=== PATIENT | female | born 1990 | race American Indian/Alaskan Native ===

== ENCOUNTER 2020-12-16 13:57 | Emergency (ER) | payer MEDICAID ==
[2020-12-16 15:15] VITALS: BP 112/84
--- NOTE | 2020-12-16 15:38 | Emergency Department Report ---
ED Lower Extremity HPI - General Chief Complaint: Extremity Injury, Lower Stated Complaint: RT ANKLE PAIN/FALL Time Seen by Provider: 12/16/20 15:32 Source: patient Mode of arrival: Ambulatory Limitations: No Limitations - History of Present Illness Initial Comments: patient is a 30-year-old female presents emergency room complaints of a right ankle injury that occurred earlier today. Patient states that she was running to catch the bus and accidentally had a inversion injury of her ankle. She states since then she has had ankle pain and swelling. She states that she soaked in Epson salt prior to arrival and reports that it did have some improvement. She denies any numbness or weakness. She states that ambulation causes pain and she is currently using 1 crutch. She denies any numbness or weakness. She denies ever injuring in the past. PMHx asthma. No allergies medications. Last menstrual cycle last month, she denies possibility of p regnancy. - Related Data Previous Rx's Medication Instructions Recorded Last Taken Type Naproxen [EC-Naprosyn] 500 mg PO BID PRN #14 tablet. 12/16/20 Unknown Rx ED Review of Systems ROS: Stated complaint: RT ANKLE PAIN/FALL Other details as noted in HPI Comment: All other systems reviewed and negative ED Past Medical Hx - Past Medical History Hx Asthma: Yes - Surgical History Additional Surgical History: - Medications Home Medications: Home Medications Medication Instructions Recorded Confirmed Last Taken Type Naproxen [EC-Naprosyn] 500 mg PO BID PRN #14 tablet. 12/16/20 Unknown Rx ED Physical Exam - General Limitations: No Limitations General appearance: alert, in no apparent distress - Head Head exam: Present: atraumatic, normocephalic - Eye Eye exam: Present: normal appearance - ENT ENT exam: Present: mucous membranes moist - Respiratory Respiratory exam: Absent: respiratory distress, accessory muscle use - Extremities Exam Extremities exam: Present: other (ttp to the right medial ankle, there is right lateral ankle edema, no ttp of the right foot or digits, FROM of the RLE pain with internal rotation of the ankle, neurovascularly intact) - Neurological Exam Neurological exam: Present: alert, oriented X3 - Psychiatric Psychiatric exam: Present: normal affect, normal mood - Skin Skin exam: Present: warm, dry, intact ED Course Vital Signs 12/16/20 15:14 Temperature 97.9 F Pulse Rate 73 Respiratory 16 Rate Blood Pressure 112/84 [Right] O2 Sat by Pulse 99 Oximetry ED Lower Extremity MDM - Radiology Data Radiology results: report reviewed Ordering Physician: KAYE HEALY Date of Service: 12/16/20 Procedure(s): XR ankle 3+V RT Accession Number(s): [id number] cc: KAYE HEALY Fluoro Time In Minutes: RIGHT ANKLE 3 VIEWS INDICATION / CLINICAL INFORMATION: Right ankle inversion injury after fall COMPARISON: None available. FINDINGS: BONES and JOINT(S): No acute fracture or subluxation. No significant arthritis. SOFT TISSUES: No significant abnormality. ADDITIONAL FINDINGS: None. IMPRESSION: 1. No acute findings. Signer Name: Nilesh Simpson MD Signed: 12/16/2020 4:08 PM Workstation Name: [id number] Transcribed By: CATRACHITA Dictated By: Nilesh Simpson MD Electronically Authenticated By: Nilesh Simpson MD Signed Date/Time: 12/16/201607 DD/ 06 TD/TT: - Medical Decision Making patient is a 30-year-old female presents emergency room complaints of a right ankle injury that occurred earlier today. Patient states that she was running to catch the bus and accidentally had a inversion injury of her ankle. She states since then she has had ankle pain and swelling. She states that she soaked in Epson salt prior to arrival and reports that it did have some improvement. She denies any numbness or weakness. She states that ambulation causes pain and she is currently using 1 crutch. She denies any numbness or weakness. She denies ever injuring in the past. PMHx asthma. No allergies medications. Last menstrual cycle last month, she denies possibility of . vitals are normal. on exam: ttp to the right medial ankle, there is right lateral ankle edema, no ttp of the right foot or digits, FROM of the RLE pain with internal rotation of the ankle, neurovascularly intact. XR right ankle: 1. No acute findings. Symptoms likely related to ankle sprain. Patient placed in ankle stirrup splint and given crutches by tech and remained neurovascularly intact. Discussed all results with patient and the importance of orthopedic follow-up. Patient given prescription for naproxen. Advised patient Please take medication as prescribed as needed. May use ice for 15 minutes at that time, rest, elevation of the leg. Follow-up with orthopedic doctor. Return to emergency room for new or worsening symptoms. Critical care attestation.: If time is entered above; I have spent that time in minutes in the direct care of this critically ill patient, excluding procedure time. ED Disposition Clinical Impression: Right ankle sprain Qualifiers: Encounter type: initial encounter Involved ligament of ankle: unspecified ligament Qualified Code(s): S93.401A - Sprain of unspecified ligament of right ankle, initial encounter Disposition: TO HOME OR SELFCARE Is pt being admited?: No Does the pt Need Aspirin: No Condition: Stable Instructions: RICE Therapy for Routine Care of Injuries, [id number], Ankle Sprain, [id number] Additional Instructions: Please take medication as prescribed as needed. May use ice for 15 minutes at that time, rest, elevation of the leg. Follow-up with orthopedic doctor. Return to emergency room for new or worsening symptoms. Prescriptions: Naproxen [EC-Naprosyn] 500 mg PO BID PRN #14 tablet.dr COWAN Reason: pain Referrals: KATINA SHOEMAKER MD [Staff Physician] - 2-[address] [facility] [Provider Group] - 2-3 Days Forms: Work/School Release Form(ED) Time of Disposition: 16:49 Print Language: UZBEK
--- NOTE | 2020-12-16 16:12 | XRay Report ---
RIGHT ANKLE 3 VIEWS INDICATION / CLINICAL INFORMATION: Right ankle inversion injury after fall COMPARISON: None available. FINDINGS: BONES and JOINT(S): No acute fracture or subluxation. No significant arthritis. SOFT TISSUES: No significant abnormality. ADDITIONAL FINDINGS: None. IMPRESSION: 1. No acute findings. Signer Name: Nilesh Simpson MD Signed: 12/16/2020 4:08 PM Workstation Name: [id number]
== END 2020-12-16 18:05 | disposition home or self-care (01) ==
LOC: ED 13:57
DX: S93.401A Sprain of unspecified ligament of right ankle, initial encounter (principal); J45.909 Unspecified asthma, uncomplicated; Z79.899 Other long term (current) drug therapy; X50.9XXA Other and unspecified overexertion or strenuous movements or postures, initial encounter; Y93.89 Activity, other specified; Y92.89 Other specified places as the place of occurrence of the external cause; Y99.8 Other external cause status
CPT/HCPCS: 99283